=== PATIENT | male | born 1965 | race American Indian/Alaskan Native ===

== ENCOUNTER 2017-10-14 12:21 | Emergency (ER) | payer BC, OTHER | END 2017-10-14 13:22 | disposition left against medical advice (07) | LOC: DL.ED 12:21 | DX: Z53.21 Procedure and treatment not carried out due to patient leaving prior to being seen by health care provider (principal) ==

== ENCOUNTER 2023-04-19 07:05 | Emergency (ER) | payer MEDICAID, OTHER ==
[2023-04-19] MEDS ORDERED: fentaNYL 100 MCG/2 ML SDV IVPUSH ONE (07:34)
[2023-04-19] MEDS ORDERED: Naloxone 2 MG/2 ML Syringe IVPUSH PRN (07:34)
[2023-04-19 07:54] LABS: BASOPHILS PERCENT AUTO 0.2 % (0.0-1.0); EOSINOPHILS PERCENT AUTO 0.3 % (1.0-3.0); HEMATOCRIT 43.6 % (40.0-54.0); HEMOGLOBIN 15.3 g/dL (14.0-18.0); LYMPHOCYTES PERCENT AUTO 10.5 % (20.5-50.1); MEAN CORPUSCULAR HEMOGLOBIN 30.6 pg (27.0-34.0); MEAN CORPUSCULAR HGB CONC 35.1 g/dL (33.0-35.0); MEAN CORPUSCULAR VOLUME 87.2 fL (80-100); MONOCYTES PERCENT AUTO 11.4 % (2-8); NEUTROPHILS PERCENT AUTO 77.6 % (42.2-75.2); PLATELET COUNT,PLT 203 10^3/uL (150-450)
[2023-04-19 08:21] LABS: APPEARANCE,URINE SLIGHTLY CLOUDY (CLEAR); BILIRUBIN,URINE SMALL (NEGATIVE); COLOR,URINE DARK YELLOW (YELLOW); GLUCOSE,URINE NEGATIVE (NEGATIVE); KETONES,URINE 40 (NEGATIVE); LEUKOCYTE ESTERASE,URINE TRACE (NEGATIVE); NITRITE,URINE NEGATIVE (NEGATIVE); OCCULT BLOOD,URINE MODERATE (NEGATIVE); PH,URINE 5.5 (5.0-9.0); PROTEIN,URINE >=300 (NEGATIVE)
[2023-04-19 08:26] LABS: ALBUMIN 3.1 g/dL (3.4-5.0); ANION GAP 12.4 mEq/L (7-13); BILIRUBIN TOTAL 1.8 mg/dL (0.2-1.0); BUN/CREATININE RATIO 10.1 (No establ ref range); CALCIUM 8.7 mg/dL (8.5-10.1); CREATININE 0.99 mg/dL (0.70-1.30); EST CRCL DRUG DOSING (CG) 90.36 mL/min; MAGNESIUM 1.9 mg/dL (1.8-2.4); POTASSIUM,K 3.4 mmol/L (3.5-5.1); PROTEIN TOTAL,TP 8.3 g/dL (6.4-8.2)
[2023-04-19 08:35] LABS: A/G RATIO 0.6; C-REACTIVE PROTEIN 30.4 mg/dL (0.0-0.9)
[2023-04-19 08:35] LABS: BACTERIA,URINE MODERATE /HPF (0-FEW/HPF); EPITHELIAL CELLS,URINE RARE /HPF (NOT SEEN); MUCUS,URINE FEW /LPF (NOT SEEN); WBC,URINE 50-75 /HPF (0-5/HPF)
[2023-04-19] MEDS ORDERED: cefTRIAXone 2 GM Vial IM ONE (08:42)
[2023-04-19] MEDS ORDERED: cefTRIAXone 2 GM Vial IVPUSH ONE (08:49)
[2023-04-19] MEDS ORDERED: Sodium Chloride 0.9% 1,000 ML IV ONE (08:56)
[2023-04-19] MEDS ORDERED: Iopamidol 612 MG/ML 100 ML Bottle IVPUSH ONE (09:14)
== END 2023-04-19 09:54 | disposition home or self-care (01) ==
LOC: DL.ED 07:05
DX: N41.0 Acute prostatitis (principal); R35.0 Frequency of micturition; K57.30 Diverticulosis of large intestine without perforation or abscess without bleeding; M54.9 Dorsalgia, unspecified; N39.0 Urinary tract infection, site not specified; Z88.6 Allergy status to analgesic agent
CPT/HCPCS: 36415; 74177; 80053; 80143; 81001; 82947; 83605; 83735; 85025; 86140; 96361; 96374; 96375; 99284; J0696; J3010; J7030; Q9967

== ENCOUNTER 2023-05-11 07:38 | Emergency (ER) | payer OTHER ==
[2023-05-11] MEDS ORDERED: Orphenadrine 60 MG/2 ML Inj IM ONE (08:11)
[2023-05-11 08:21] LABS: APPEARANCE,URINE CLEAR (CLEAR); BILIRUBIN,URINE NEGATIVE (NEGATIVE); COLOR,URINE YELLOW (YELLOW); GLUCOSE,URINE NEGATIVE (NEGATIVE); KETONES,URINE NEGATIVE (NEGATIVE); LEUKOCYTE ESTERASE,URINE NEGATIVE (NEGATIVE); NITRITE,URINE NEGATIVE (NEGATIVE); OCCULT BLOOD,URINE NEGATIVE (NEGATIVE); PH,URINE 5.5 (5.0-9.0); PROTEIN,URINE NEGATIVE (NEGATIVE); UROBILINOGEN,URINE 0.2 mg/dL (0.2-1.0)
== END 2023-05-11 08:54 | disposition home or self-care (01) ==
LOC: DL.ED 07:38
DX: S86.911A Strain of unspecified muscle(s) and tendon(s) at lower leg level, right leg, initial encounter (principal); M62.838 Other muscle spasm; E11.9 Type 2 diabetes mellitus without complications; Z79.84 Long term (current) use of oral hypoglycemic drugs; Z88.8 Allergy status to other drugs, medicaments and biological substances; X58.XXXA Exposure to other specified factors, initial encounter; Y93.41 Activity, dancing
CPT/HCPCS: 81003; 96372; 99283; J2360

== ENCOUNTER 2023-09-26 10:33 | Emergency (ER) | payer OTHER ==
[2023-09-26] MEDS ORDERED: methylPREDNISolone Sodium Succinate 125 MG/2 ML SDV IM ONE (11:05)
[2023-09-26] MEDS ORDERED: Acetaminophen/HYDROcodone 325-10 MG Tab PO ONE (11:05)
[2023-09-26] MEDS ORDERED: Methotrexate 2.5 MG Tab PO ONE (11:06)
[2023-09-26] MEDS ORDERED: Take Home: Acetaminophen/HYDROcodone 325-5 MG, 5 Tab Pack PO ONE (11:07)
[2023-09-26] MEDS ORDERED: Methotrexate 2.5 MG Tab ONE (11:15)
== END 2023-09-26 11:04 | disposition home or self-care (01) ==
LOC: DL.ED 10:33
DX: M06.9 Rheumatoid arthritis, unspecified (principal); E11.9 Type 2 diabetes mellitus without complications; Z79.84 Long term (current) use of oral hypoglycemic drugs; Z88.5 Allergy status to narcotic agent; Z88.8 Allergy status to other drugs, medicaments and biological substances; Z79.899 Other long term (current) drug therapy
CPT/HCPCS: 96372; 99283; A9270-GY; J2930; J8610

== ENCOUNTER 2024-03-27 09:47 | Emergency (ER) | payer OTHER ==
[2024-03-27] MEDS: methylPREDNISolone Sodium Succinate 125 MG/2 ML SDV IM ONE (10:32)
[2024-03-27] MEDS: Bacitracin Oint 1 GM U/D Packet TOP ONE (10:33)
== END 2024-03-27 11:02 | disposition home or self-care (01) ==
LOC: DL.ED 09:47
DX: S90.412A Abrasion, left great toe, initial encounter (principal); M77.32 Calcaneal spur, left foot; M77.31 Calcaneal spur, right foot; M06.9 Rheumatoid arthritis, unspecified; E11.9 Type 2 diabetes mellitus without complications; Z86.16 Personal history of COVID-19; Z79.84 Long term (current) use of oral hypoglycemic drugs; Z79.899 Other long term (current) drug therapy; Z88.8 Allergy status to other drugs, medicaments and biological substances; X58.XXXA Exposure to other specified factors, initial encounter
CPT/HCPCS: 96372; 99283; A9270; J2919

== ENCOUNTER 2024-05-03 16:38 | Emergency (ER) | payer OTHER ==
[2024-05-03] MEDS: methylPREDNISolone Sodium Succinate 40 MG/1 ML SDV IM ONE (17:03)
== END 2024-05-03 17:17 | disposition home or self-care (01) ==
LOC: DL.ED 16:38
DX: Z76.0 Encounter for issue of repeat prescription (principal); M19.029 Primary osteoarthritis, unspecified elbow; M19.079 Primary osteoarthritis, unspecified ankle and foot; E11.9 Type 2 diabetes mellitus without complications; Z88.6 Allergy status to analgesic agent; Z88.8 Allergy status to other drugs, medicaments and biological substances; Z79.84 Long term (current) use of oral hypoglycemic drugs; Z79.899 Other long term (current) drug therapy; Z86.16 Personal history of COVID-19; Z90.49 Acquired absence of other specified parts of digestive tract
CPT/HCPCS: 96372; 99281; J2919